=== PATIENT | female | born 1960 | race Caucasian/White ===

== ENCOUNTER 2018-02-11 16:18 | Inpatient (IN) | payer BC, OTHER ==
[~2018-02-11] VITALS: Ht 152.4 cm; Wt 58.3 kg
[~2018-02-11 16:18] MED LIST: NITR100C4 PO
[2018-02-11 16:23] VITALS: BP 175/84; PULSE 97; RESP 16; TEMP 98.7; O2SAT 97
[2018-02-11] MEDS ORDERED: LISI10TA3 PO (16:43)
[2018-02-11] MEDS ORDERED: ESTRODIAL PO (16:43)
--- NOTE | 2018-02-11 16:45 | MB ---
cc: Mario Alberto Reddy MD, PhD Mario Alberto Reddy MD PhD DATE: 02/11/2018 REASON FOR CONSULTATION: Carotid dissection. HISTORY OF PRESENT ILLNESS: This is a very pleasant 57-year-old female with a history of hypertension as well as Crohn's disease who was healthy until last Saturday when she was doing some strenuous exercises and noted pain in the left side of her neck, which radiated to the left eye, and had left facial numbness. She had an MRI of the brain done last week, which was normal. She saw her military nurse on Saturday who diagnosed a left Elvis syndrome and today she was at [facility] receiving imaging of the carotid artery. She had an MRA of the brain that was normal. She had an MRA of the carotids consistent with a dissection involving the distal cervical internal carotid artery on the left. This was confirmed by CT angiography which revealed a dissection of the cervical left internal carotid artery with approximately 60% stenosis on the CTA. She also had a CT of the chest and there is no evidence of any [place] tumor. There was no evidence for any dissecting aneurysm on the CT chest with contrast. She denies any other neurological complaints. She has had no symptoms suggesting TIA, i.e., no speech changes, no focal weakness, numbness, etc. PAST MEDICAL HISTORY: She has a history of Crohn's disease as well as hypertension, hysterectomy. MEDICATIONS AT HOME: 1. Pyridium, 2. Macrobid 3. Pentasa 4. Adderall, 5. Excedrin 6. Lisinopril. 7. Vitamin E 8. Estradiol ALLERGIES: SULFA CODEINE NEUROLOGICAL EXAMINATION: VITAL SIGNS: Blood pressure 173/95, pulse is 67, respiratory rate is 20. Higher cortical functions are completely normal including speech. Comprehension is normal. Cranial nerves: She has a left Elvis syndrome. There is ptosis and myosis on the left. Other cranial nerves are completely normal. There is no facial asymmetry. Facial sensation is grossly normal. On motor examination, she demonstrates 5/5 strength of all groups in both upper and lower. There is no drift. Fine motor skills within normal limits. Reflexes are symmetric. Sensory exam intact. IMPRESSION: Left carotid artery dissection. RECOMMENDATIONS: Would recommend obtaining a stat CT brain to rule out infarction or hemorrhage. If this is clear, would recommend starting IV heparin as well as Coumadin and low-dose 81 mg aspirin. Once the Coumadin is therapeutic, i.e., INR 2-3, could discontinue the IV heparin. Would recommend anticoagulation for at least 6 months, at which point we could repeat a CT angiogram and, if it shows healing of the dissection, could then stop the Coumadin in 6 months and continue aspirin alone. Mario Alberto Reddy MD, PhD DEANDRE/SA , 04:23 PM , 04:44 PM
[2018-02-11] MEDS ORDERED: MULT-207 PO (17:09)
[2018-02-11] MEDS ORDERED: GINK120T4 PO (17:09)
[2018-02-11] MEDS ORDERED: MACR100C2 PO (17:09)
[2018-02-11] MEDS ORDERED: VITA100T65 PO (17:09)
[2018-02-11] MEDS ORDERED: EXCETAB31 PO (17:09)
[2018-02-11] MEDS ORDERED: PENT500C2 PO (17:09)
[2018-02-11] MEDS ORDERED: ESTR2TAB PO (17:09)
[2018-02-11] MEDS ORDERED: [UNRECOGNIZED DRUG - CODE] PO (17:12)
[2018-02-11 17:32] LABS: AUTOMATED NEUTROPHIL # 4.8 TH/MM3 (1.8-7.7); BASOPHIL % 0.5 % (0.0-2.0); EOSINOPHIL # 0.1 TH/MM3 (0-0.4); EOSINOPHIL % 1.3 % (0.0-4.0); HEMATOCRIT 36.9 % (35.0-46.0); HEMOGLOBIN 12.5 GM/DL (11.6-15.3); LYMPH % 23.5 % (9.0-44.0); LYMPHOCYTE # 1.7 TH/MM3 (1.0-4.8); MEAN CELL VOLUME 94.4 FL (80.0-100.0); MEAN CORPUSCULAR HGB CONC 33.9 % (32.0-36.0); MEAN PLATELET VOLUME 8.5 FL (7.0-11.0); MONO % 7.2 % (0.0-8.0); MONOCYTE # 0.5 TH/MM3 (0-0.9); NEUT % 67.5 % (16.0-70.0); PLATELET COUNT 276 TH/MM3 (150-450); RED BLOOD COUNT 3.91 MIL/MM3 (4.00-5.30); RED CELL DISTRIBUTION WIDTH 12.7 % (11.6-17.2)
[2018-02-11 17:38] LABS: INTERNATIONAL NORMALIZED RATIO 0.9 RATIO; PROTHROMBIN TIME - PATIENT 9.4 SEC (9.8-11.6)
[2018-02-11 17:49] LABS: ALBUMIN 4.1 GM/DL (3.4-5.0); AST (GOT) 14 U/L (15-37); BLOOD UREA NITROGEN 10 MG/DL (7-18); CALCIUM 8.9 MG/DL (8.5-10.1); CHLORIDE 104 MEQ/L (98-107); CREATININE 0.71 MG/DL (0.50-1.00); GLOMERULAR FILTRATION RATE 85 ML/MIN (>89); GLUCOSE,RANDOM 98 MG/DL (74-106); SODIUM (NA) 139 MEQ/L (136-145)
--- NOTE | 2018-02-11 17:57 | RADRPT ---
EXAM DATE/TIME: 02/11/2018 17:37 [facility] COMPARISON: No previous studies available for comparison. INDICATIONS : Left sided head and neck pain, Altered mental status RADIATION DOSE: 34.66 CTDIvol (mGy) MEDICAL HISTORY : Hypertension. Crohns disease. SURGICAL HISTORY : Hysterectomy. ENCOUNTER: Initial ACUITY: 1 day PAIN SCALE: 8/10 LOCATION: cranial TECHNIQUE: Multiple contiguous axial images were obtained of the head. Using automated exposure control and adj ustment of the mA and/or kV according to patient size, radiation dose was kept as low as reasonably a chievable to obtain optimal diagnostic quality images. DICOM format image data is available electro nically for review and comparison. FINDINGS: CEREBRUM: The ventricles are normal for age. No evidence of midline shift, mass lesion, hemorrhage or acute in farction. No extra-axial fluid collections are seen. POSTERIOR FOSSA: The cerebellum and brainstem are intact. The 4th ventricle is midline. The cerebellopontine angle i s unremarkable. EXTRACRANIAL: The visualized portion of the orbits is intact. SKULL: The calvaria is intact. No evidence of skull fracture. CONCLUSION: Normal examination. Bobby Thomas MD on February 11, 2018 at 17:51 Board Certified Radiologist. This report was verified electronically.
[2018-02-11 17:59] LABS: ALKALINE PHOSPHATASE 72 U/L (45-117); ALT (GPT) 19 U/L (10-53); TOTAL BILIRUBIN ADULT 0.3 MG/DL (0.2-1.0); TOTAL PROTEIN 7.6 GM/DL (6.4-8.2)
--- NOTE | 2018-02-11 18:08 | PD ---
HPI Chief Complaint: Abnormal Results Time Seen by Provider: 16:58 Travel History International Travel<30 days: No Contact w/Intl Traveler<30days: No Traveled to known affect area: No History of Present Illness HPI 57-year-old female came to the emergency room sent by Dr. Reddy the neurologist for a diagnosis of carotid dissection. Patient apparently had some neck pain and facial numbness 1 week ago and had gone to see her primary care. There was a CTA of the neck done at that time which was normal. However she went to see an master control operator on Saturday and was diagnosed with Elvis syndrome. There was another CTA of the neck and MRA ordered which was done today and shows carotid dissection. She was referred to Dr. Reddy who has sent her here to be admitted and started on heparin and follow-up with vascular surgeon. Dr. Reddy had called earlier to let us know that he had spoken with Dr. Robison and Keily regarding this patient. The plan was to do a plain head CT and if that was negative for any acute stroke or hemorrhage and patient could be started on the heparin, be admitted and consulted. Vital signs are stable otherwise. Patient is not on any other blood thinners. [facility] Past Medical History Narrative Medical List of her past medical, surgical, social and family history is reviewed from the nursing note. Gastrointestinal Disorders: Yes (chrons) Hypertension: Yes Tetanus Vaccination: < 5 Years ?: Not Past Surgical History Hysterectomy: Yes Social History Alcohol Use: No Tobacco Use: No Allergies-Medications (Allergen,Severity, Reaction): Coded Allergies: codeine (Unverified Allergy, Severe, 02/11/18) ITCHING hydromorphone (Verified Allergy, Intermediate, Chest Pain, 02/12/18) Latex, Natural Rubber (Verified Allergy, Mild, sensitive, 02/11/18) Sulfa (Sulfonamide Antibiotics) (Verified Adverse Reaction, Mild, sensitive, 02/11/18) Uncoded Allergies: CODEINE-ITCHING (Allergy, Unknown, 06/15/03) Comments List of her allergies reviewed from the nursing note. Reported Meds & Prescriptions Reported Meds & Active Scripts Active Reported Adderall (Amphetamine-Dextroamphetamine) 30 Mg Tab 1 Tab PO DAILY Nitrofurantoin Monohydrate Macrocrystals (Nitrofurantoin Monoh/Nitrofur Macro) 100 Mg Cap 1 Tab PO BID 10 Days E1000 (Vitamin E) 1,000 Unit Cap 1,000 Unit PO DAILY One Daily (Multiple Vitamin) 1 Tab 1 Tab PO DAILY Ginkgo Biloba 120 Mg Tablet 120 Mg PO DAILY Excedrin Migraine Caplet (Aspirin/Acetaminophen/Caffeine) 250 Mg-250 Mg-65 Mg Tablet 1-2 Tab PO DAILY PRN Macrobid (Nitrofurantoin Monoh/Nitrofur Macro) 100 Mg Cap 100 Mg PO BID Pentasa (Mesalamine) 500 Mg Caper 1,000 Mg PO HS Estradiol 2 Mg Tab 2 Mg PO DAILY Lisinopril 10 Mg Tab 10 Mg PO DAILY Narrative Medication List of her home medications reviewed from the nursing note. Review of Systems Except as stated in HPI: all other systems reviewed are Neg Neurologic: Positive: Paresthesia Physical Exam Narrative GENERAL: Awake, alert, anxious, no obvious distress SKIN: Focused skin assessment warm/dry. HEAD: Atraumatic. Normocephalic. EYES: Pupils equal and round. No scleral icterus. No injection or drainage. Left sided Elvis syndrome ENT: No nasal bleeding or discharge. Mucous membranes pink and moist. NECK: Trachea midline. No JVD. CARDIOVASCULAR: Regular rate and rhythm. No murmur appreciated. RESPIRATORY: No accessory muscle use. Clear to auscultation. Breath sounds equal bilaterally. GASTROINTESTINAL: Abdomen soft, non-tender, nondistended. Hepatic and splenic margins not palpable. MUSCULOSKELETAL: No obvious deformities. No clubbing. No cyanosis. No edema. NEUROLOGICAL: Awake and alert. No obvious cranial nerve deficits. Motor grossly within normal limits. Normal speech. PSYCHIATRIC: Appropriate mood and affect; insight and judgment normal. Data Data Last Documented VS Vital Signs Date Time Temp Pulse Resp B/P (MAP) Pulse Ox O2 Delivery O2 Flow Rate FiO2 02/11/18 17:27 99 02/11/18 16:23 98.7 97 16 175/84 (114) Orders Orders Complete Blood Count With Diff (02/11/18 16:42) Comprehensive Metabolic Panel (02/11/18 16:42) Act Partial Throm Time (Ptt) (02/11/18 16:42) Prothrombin Time / Inr (Pt) (02/11/18 16:42) Iv Access Insert/Monitor (02/11/18 16:42) Ct Brain W/O Iv Contrast(Rout) (02/11/18 ) Heparin Inj (Heparin Inj) (02/11/18 18:15) Heparin Inj (Heparin Inj) (02/12/18 00:15) Heparin Inj (Heparin Inj) (02/12/18 00:15) Heparin-D5w 25,000 U/250 Ml (Heparin-D5w (02/11/18 18:30) Cbc No Diff, Includes Plts (02/14/18 06:00) Act Partial Throm Time (Ptt) (02/12/18 01:03) Acetamin-Hydrocod 325-5 Mg (Canute 5-325 (02/11/18 18:15) Diet Heart Healthy (02/11/18 Dinner) Admit Order (Ed Use Only) (02/11/18 18:36) Labs Laboratory Tests Test 02/11/18 17:10 White Blood Count 7.0 TH/MM3 Red Blood Count 3.91 MIL/MM3 Hemoglobin 12.5 GM/DL Hematocrit 36.9 % Mean Corpuscular Volume 94.4 FL Mean Corpuscular Hemoglobin 32.0 PG Mean Corpuscular Hemoglobin Concent 33.9 % Red Cell Distribution Width 12.7 % Platelet Count 276 TH/MM3 Mean Platelet Volume 8.5 FL Neutrophils (%) (Auto) 67.5 % Lymphocytes (%) (Auto) 23.5 % Monocytes (%) (Auto) 7.2 % Eosinophils (%) (Auto) 1.3 % Basophils (%) (Auto) 0.5 % Neutrophils # (Auto) 4.8 TH/MM3 Lymphocytes # (Auto) 1.7 TH/MM3 Monocytes # (Auto) 0.5 TH/MM3 Eosinophils # (Auto) 0.1 TH/MM3 Basophils # (Auto) 0.0 TH/MM3 CBC Comment DIFF FINAL Differential Comment Prothrombin Time 9.4 SEC Prothromb Time International Ratio 0.9 RATIO Activated Partial Thromboplast Time 25.9 SEC Blood Urea Nitrogen 10 MG/DL Creatinine 0.71 MG/DL Random Glucose 98 MG/DL Total Protein 7.6 GM/DL Albumin 4.1 GM/DL Calcium Level 8.9 MG/DL Alkaline Phosphatase 72 U/L Aspartate Amino Transf (AST/SGOT) 14 U/L Alanine Aminotransferase (ALT/SGPT) 19 U/L Total Bilirubin 0.3 MG/DL Sodium Level 139 MEQ/L Potassium Level 3.9 MEQ/L Chloride Level 104 MEQ/L Carbon Dioxide Level 28.0 MEQ/L Anion Gap 7 MEQ/L Estimat Glomerular Filtration Rate 85 ML/MIN MDM Medical Decision Making Medical Screen Exam Complete: Yes Emergency Medical Condition: Yes Medical Record Reviewed: Yes Differential Diagnosis Carotid dissection Narrative Course 6:[address] of the head is been read as normal. Blood test results are within acceptable limits. I have ordered heparin bolus and drip. I put a call out for Dr. Reddy and have not heard back from him yet. Awaiting for the hospitalist to call back for admission. Critical Care Narrative Aggregate critical care time was 30 minutes. Time to perform other separately billable procedures was not included in the critical care time. My time did not include minutes spent treating any other patients simultaneously or on activities that did not directly contribute to the patient's treatment. The services I provided to this patient were to treat and/or prevent clinically significant deterioration that could result in: Heparin bolus and drip, carotid dissection I provided critical care services requiring my management, as noted below: Chart data review, documentation time, medication orders and management, vital sign assessments/reviewing monitor data, ordering and reviewing lab tests, ordering and interpreting/reviewing x-rays and diagnostic studies, care of the patient and discussion of the patient with the admitting physicians. Procedures EKG Prior to Arrival: No Diagnosis Primary Impression: Carotid artery dissection Additional Impression: Elvis syndrome Admitting Information Admitting Physician Requests: Aparna Tompkins MD February 11, 2018 18:08
[2018-02-11] MEDS ORDERED: ACETAMINOPHEN/HYDROcodone 325 MG/5 MG TAB PO ONE (18:15)
[2018-02-11] MEDS ORDERED: HEPARIN SODIUM - IV 10,000 UNITS/10 ML VIAL IV ONE (18:15)
[2018-02-11] MEDS: HEPARIN-D5W 25,000 U/250 ML 250 ML IV PRN (18:44)
[2018-02-11] MEDS ORDERED: SENNOSIDES 8.6 MG TAB PO PRN (19:15)
[2018-02-11] MEDS ORDERED: BISACODYL 10 MG SUPP RECTAL PRN (19:15)
[2018-02-11] MEDS ORDERED: MAGNESIUM HYDROXIDE SUSP 30 ML CUP PO PRN (19:15)
[2018-02-11] MEDS ORDERED: LACTULOSE SYRUP 20 GM/30 ML CUP PO PRN (19:15)
[2018-02-11] MEDS ORDERED: NALOXONE HCL 0.4 MG/ML AMP IV PUSH PRN (19:15)
[2018-02-11] MEDS ORDERED: SODIUM CHLORIDE 0.9% FLUSH 10 ML FLUSH IV FLUSH PRN (19:15)
[2018-02-11] MEDS ORDERED: WARFARIN SOD 5 MG TAB PO SCH (20:00)
[2018-02-11 20:08] VITALS: BP 156/76; PULSE 72; RESP 14; O2SAT 97
[2018-02-11] MEDS ORDERED: WARFARIN SOD 5 MG TAB PO ONE (20:15)
--- NOTE | 2018-02-11 20:23 | HHI.HP ---
[facility] Mario Alberto Plata M.D. Admission Diagnosis Carotid dissection Diagnoses: Chief Complaint: Left face numbness, left neck pain Travel History International Travel<30 Days: No Contact w/Intl Traveler <30 Da: No Traveled to Known Affected Are: No History of Present Illness 57-year-old female with past medical history of hypertension, ulcerative colitis , attention deficit on dextroamphetamine who presents with a one-week history of dull left neck pain radiating to left face, with several day history of left face numbness. She went to urgent care this morning with MRA showing left carotid dissection. She reports continued left-sided face numbness which is slightly improved. She denies any visual changes. She reports some nausea yesterday without vomiting which has resolved. She reports some subjective night sweats last night, however denies any fevers. Other than left facial numbness, patient denies any focal neurologic signs or symptoms. Incidentally, patient also reports some hematuria beginning about a week ago, for which a urinalysis was done 5 days ago and patient was started on Macrobid for treatment of UTI. She reports that symptoms have resolved but she is to continue treatment. Review of Systems Except as stated in HPI: all other systems reviewed are Neg Past Family Social History Past Medical History Attention deficit disorder. Patient takes Adderall for this Hypertension Crohn's disease Chronic migraines Past Surgical History Hysterectomy Basal cell carcinoma removal Reported Medications Reported Meds & Active Scripts Active Reported E1000 (Vitamin E) 1,000 Unit Cap 1,000 Unit PO DAILY One Daily (Multiple Vitamin) 1 Tab 1 Tab PO DAILY Ginkgo Biloba 120 Mg Tablet 120 Mg PO DAILY Excedrin Migraine Caplet (Aspirin/Acetaminophen/Caffeine) 250 Mg-250 Mg-65 Mg Tablet 1-2 Tab PO DAILY PRN Macrobid (Nitrofurantoin Monoh/Nitrofur Macro) 100 Mg Cap 100 Mg PO BID Pentasa (Mesalamine) 500 Mg Caper 1,000 Mg PO HS Estradiol 2 Mg Tab 2 Mg PO DAILY Lisinopril 10 Mg Tab 10 Mg PO DAILY Patient also reports that she takes Adderall as needed for attention deficit Allergies: Coded Allergies: codeine (Unverified Allergy, Severe, 02/11/18) ITCHING Latex, Natural Rubber (Verified Allergy, Mild, sensitive, 02/11/18) Sulfa (Sulfonamide Antibiotics) (Verified Adverse Reaction, Mild, sensitive, 02/11/18) Uncoded Allergies: CODEINE-ITCHING (Allergy, Unknown, 06/15/03) Family History Mother with hypertension and diabetes. Father with ulcerative colitis. Social History Non-smoker. Occasional drinker. Patient denies any illicit drugs. Physical Exam Vital Signs Vital Signs Date Time Temp Pulse Resp B/P (MAP) Pulse Ox O2 Delivery O2 Flow Rate FiO2 02/11/18 20:08 72 14 156/76 (102) 97 Nasal Cannula 2.00 02/11/18 17:27 99 02/11/18 16:23 98.7 97 16 175/84 (114) 97 Physical Exam GENERAL: This is a well-nourished, well-developed patient, in no apparent distress. Alert and oriented 3 SKIN: No rashes, ecchymoses or lesions. Cool and dry. HEAD: Atraumatic. Normocephalic. No temporal or scalp tenderness. EYES: Pupils equal round and reactive. Extraocular motions intact. No scleral icterus. No injection or drainage. ENT: Nose without bleeding, purulent drainage or septal hematoma. Throat without erythema, tonsillar hypertrophy or exudate. Uvula midline. Airway patent. NECK: Trachea midline. No JVD. CARDIOVASCULAR: Regular rate and rhythm without murmurs, gallops, or rubs. No carotid bruit. RESPIRATORY: Clear to auscultation. Breath sounds equal bilaterally. No wheezes , rales, or rhonchi. GASTROINTESTINAL: Abdomen soft, non-tender, nondistended. No hepato-splenomegaly , or palpable masses. No guarding. MUSCULOSKELETAL: Extremities without clubbing, cyanosis, or edema. No joint tenderness, effusion, or edema noted. No calf tenderness. Negative Homans sign bilaterally. NEUROLOGICAL: Awake and alert. Cranial nerves II through XII intact. Pupils equal round and reactive to light. Patient reports subjective left face numbness. No facial droop. Motor and sensory grossly within normal limits. Five out of 5 muscle strength in all muscle groups. Normal speech. Laboratory Laboratory Tests Test 02/11/18 17:10 White Blood Count 7.0 Red Blood Count 3.91 Hemoglobin 12.5 Hematocrit 36.9 Mean Corpuscular Volume 94.4 Mean Corpuscular Hemoglobin 32.0 Mean Corpuscular Hemoglobin Concent 33.9 Red Cell Distribution Width 12.7 Platelet Count 276 Mean Platelet Volume 8.5 Neutrophils (%) (Auto) 67.5 Lymphocytes (%) (Auto) 23.5 Monocytes (%) (Auto) 7.2 Eosinophils (%) (Auto) 1.3 Basophils (%) (Auto) 0.5 Neutrophils # (Auto) 4.8 Lymphocytes # (Auto) 1.7 Monocytes # (Auto) 0.5 Eosinophils # (Auto) 0.1 Basophils # (Auto) 0.0 CBC Comment DIFF FINAL Differential Comment Prothrombin Time 9.4 Prothromb Time International Ratio 0.9 Activated Partial Thromboplast Time 25.9 Blood Urea Nitrogen 10 Creatinine 0.71 Random Glucose 98 Total Protein 7.6 Albumin 4.1 Calcium Level 8.9 Alkaline Phosphatase 72 Aspartate Amino Transf (AST/SGOT) 14 Alanine Aminotransferase (ALT/SGPT) 19 Total Bilirubin 0.3 Sodium Level 139 Potassium Level 3.9 Chloride Level 104 Carbon Dioxide Level 28.0 Anion Gap 7 Estimat Glomerular Filtration Rate 85 Result Diagram: 02/11/18 1710 02/11/18 1710 Imaging Last Impressions Head CT 02/11/18 0000 Signed Impressions: Service Date/Time: Sunday, February 11, 2018 17:37 - CONCLUSION: Normal examination. MD Devaughn Marsh VTE Risk Assessment Devaughn VTE Risk Assessment: No/Low Risk (score <= 1) Caprini Risk Assessment Model Point Value = 1 Point Value = 2 Point Value = 3 Point Value = 5 Age 41-60 Minor surgery BMI > 25 kg/m2 Swollen legs Varicose veins or History of unexplained or recurrent spontaneous Oral contraceptives or hormone replacement Sepsis (< 1 month) Serious lung disease, including pneumonia (< 1 month) Abnormal pulmonary function Acute myocardial infarction Congestive heart failure (< 1 month) History of inflammatory bowel disease Medical patient at bed rest Age 61-74 Arthroscopic surgery Major open surgery (> 45 min) Laparoscopic surgery (> 45 min) Malignancy Confined to bed (> 72 hours) Immobilizing plaster cast Central venous access Age >= 75 History of VTE Family history of VTE Factor V Leiden Prothrombin [id number] Lupus anticoagulant Anticardiolipin antibodies Elevated serum homocysteine Heparin-induced thrombocytopenia Other congenital or acquired thrombophilia Stroke (< 1 month) Elective arthroplasty Hip, pelvis, or leg fracture Acute spinal cord injury (< 1 month) Prophylaxis Regimen Total Risk Factor Score Risk Level Prophylaxis Regimen 0-1 Low Early ambulation 2 Moderate Order ONE of the following: *Sequential Compression Device (SCD) *Heparin 5000 units SQ BID 3-4 Higher Order ONE of the following medications: *Heparin 5000 units SQ TID *Enoxaparin/Lovenox 40 mg SQ daily (WT < 150 kg, CrCl > 30 mL/min) *Enoxaparin/Lovenox 30 mg SQ daily (WT < 150 kg, CrCl > 10-29 mL/min) *Enoxaparin/Lovenox 30 mg SQ BID (WT < 150 kg, CrCl > 30 mL/min) AND/OR *Sequential Compression Device (SCD) 5 or more Highest Order ONE of the following medications: *Heparin 5000 units SQ TID (Preferred with Epidurals) *Enoxaparin/Lovenox 40 mg SQ daily (WT < 150 kg, CrCl > 30 mL/min) *Enoxaparin/Lovenox 30 mg SQ daily (WT < 150 kg, CrCl > 10-29 mL/min) *Enoxaparin/Lovenox 30 mg SQ BID (WT < 150 kg, CrCl > 30 mL/min) AND *Sequential Compression Device (SCD) Assessment and Plan Assessment and Plan //Acute left carotid dissection. Seen on outpatient imaging. Neurology assistance appreciated. Continue on heparin drip to bridge to warfarin. Vascular surgery consult pending. Recommend staying off of amphetamines for attention deficit. Hold off on estrogen replacement due to increased risk of stroke. //Hypertension. Blood pressure acceptable. Continue home medications. Continue to monitor. //Ulcerative colitis. Chronic. Continue mesalamine. //Attention deficit disorder. Recommend staying off Adderall as this has been associated with increased risk of arterial dissection.. Discussed Condition With Patient, Dr Hernandez. Physician Certification 2 Midnight Certification Type: Admission for Inpatient Services Order for Inpatient Services The services are ordered in accordance with Medicare regulations or non- Medicare payer requirements, as applicable. In the case of services not specified as inpatient-only, they are appropriately provided as inpatient services in accordance with the 2-midnight benchmark. Estimated LOS (days): 2 days is the estimated time the patient will need to remain in the hospital, assuming treatment plan goals are met and no additional complications. Post-Hospital Plan: Not yet determined Josesito Gutierrez MD February 11, 2018 20:23
[2018-02-11] MEDS: SODIUM CHLORIDE 0.9% FLUSH 10 ML FLUSH IV FLUSH SCH (21:00)
[2018-02-11] MEDS ORDERED: MESALAMINE 1000 MG PO SCH (21:00)
[2018-02-11] MEDS ORDERED: ADDE30TA PO (21:04)
[2018-02-11 21:30] VITALS: BP 142/78; PULSE 68; RESP 15; TEMP 97.8; O2SAT 96
[2018-02-11] MEDS: ASPIRIN 81 MG CHEW TAB PO SCH (22:13)
[2018-02-12] VITALS (7 sets, daily range): BP systolic 136–166; BP diastolic 70–78; PULSE 59–71; RESP 12–18; TEMP 97.1–98.5; O2SAT 93–100
[2018-02-12] MEDS ORDERED: HEPARIN SODIUM - IV 10,000 UNITS/10 ML VIAL IV PRN ×2 (00:15)
[2018-02-12 01:37] LABS: PROTHROMBIN TIME - PATIENT 9.9 SEC (9.8-11.6)
[2018-02-12] MEDS: ACETAMINOPHEN 325 MG TAB PO PRN (06:41)
[2018-02-12 07:33] LABS: PROTHROMBIN TIME - PATIENT 9.9 SEC (9.8-11.6)
[2018-02-12 07:37] LABS: AUTOMATED NEUTROPHIL # 2.6 TH/MM3 (1.8-7.7); BASOPHIL % 0.9 % (0.0-2.0); EOSINOPHIL # 0.2 TH/MM3 (0-0.4); HEMOGLOBIN 11.7 GM/DL (11.6-15.3); LYMPH % 39.7 % (9.0-44.0); LYMPHOCYTE # 2.2 TH/MM3 (1.0-4.8); MEAN CELL VOLUME 93.7 FL (80.0-100.0); MEAN CORPUSCULAR HEMOGLOBIN 31.2 PG (27.0-34.0); MEAN CORPUSCULAR HGB CONC 33.3 % (32.0-36.0); MEAN PLATELET VOLUME 8.5 FL (7.0-11.0); MONO % 9.6 % (0.0-8.0); MONOCYTE # 0.5 TH/MM3 (0-0.9); NEUT % 46.8 % (16.0-70.0); PLATELET COUNT 258 TH/MM3 (150-450); RED BLOOD COUNT 3.74 MIL/MM3 (4.00-5.30); RED CELL DISTRIBUTION WIDTH 12.7 % (11.6-17.2); WHITE BLOOD COUNT 5.5 TH/MM3 (4.0-11.0)
[2018-02-12 07:50] LABS: BICARBONATE 29.3 MEQ/L (21.0-32.0); CALCIUM 8.5 MG/DL (8.5-10.1); CREATININE 0.59 MG/DL (0.50-1.00)
[2018-02-12] MEDS: SODIUM CHLORIDE 0.9% FLUSH 10 ML FLUSH IV FLUSH SCH ×2 (09:00→20:48)
[2018-02-12] MEDS ORDERED: ACETAMINOPHEN/HYDROcodone 325 MG/5 MG TAB PO PRN (09:45)
[2018-02-12] MEDS: ONDANSETRON HCL 4 MG/2 ML VIAL IV PUSH PRN (10:22)
[2018-02-12] MEDS: NITROFURANTOIN MONOHYD MACROCR 100 MG CAP PO SCH ×2 (10:23→17:09)
[2018-02-12] MEDS: ASPIRIN 81 MG CHEW TAB PO SCH (10:23)
[2018-02-12] MEDS: LISINOPRIL 10 MG TAB PO SCH (10:23)
--- NOTE | 2018-02-12 10:26 | PD.VS.CON ---
History of Present Illness Chief Complaint: Left carotid artery dissection Consult Requested by: Dr. Reddy History of Present Illness Mrs. Anand is a 57/F with a PMH of Attention Deficit Disorder, Migraine Headaches, Hypertension and Ulcerative Colitis. Pt presented to the hospital c/o Left sided facial numbness for a duration of a week after lifting weights. 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 (Kimmy Walters) Home Medications Reported Medications Amphetamine-Dextroamphetamine (Adderall) 30 Mg Tab, 1 TAB PO DAILY 02/11/18 Nitrofurantoin Monohydrate Macrocrystals (Nitrofurantoin Monohydrate Macrocrystals) 100 Mg Cap, 1 TAB PO BID for 10 Days, #20 02/11/18 Vitamin E (E1000) 1,000 Unit Cap, 1000 UNIT PO DAILY for Nutritional Supplement 02/11/18 Multiple Vitamin (One Daily) 1 Tab, 1 TAB PO DAILY for Nutritional Supplement, TAB 0 Refills 02/11/18 Ginkgo Biloba (Ginkgo Biloba) 120 Mg Tablet, 120 MG PO DAILY 02/11/18 Aspirin/Acetaminophen/Caffeine (Excedrin Migraine Caplet) 250 Mg-250 Mg-65 Mg Tablet, 1-2 TAB PO DAILY Y for HEADACHE 02/11/18 Nitrofurantoin Monohydrate Macrocrystals (Macrobid) 100 Mg Cap, 100 MG PO BID for Infection, CAP 0 Refills 02/11/18 Mesalamine ER (Pentasa) 500 Mg Caper, 1000 MG PO HS for Ulcerative Colitis, CAP 0 Refills 02/11/18 Estradiol (Estradiol) 2 Mg Tab, 2 MG PO DAILY for Estrogen Supplements, #30 TAB 0 Refills 02/11/18 Lisinopril (Lisinopril) 10 Mg Tab, 10 MG PO DAILY, #30 TAB 0 Refills 02/11/18 Discontinued Reported Medications Vitamin E (Vitamin E) 100 Unit Tab, 100 UNITS PO DAILY for Nutritional Supplement, TAB 0 Refills 02/11/18 [estrodial] No Conflict Check, 2 MG PO DAILY 02/11/18 Coded Allergies: codeine (Unverified Allergy, Severe, 02/11/18) ITCHING Latex, Natural Rubber (Verified Allergy, Mild, sensitive, 02/11/18) Sulfa (Sulfonamide Antibiotics) (Verified Adverse Reaction, Mild, sensitive, 02/11/18) Uncoded Allergies: CODEINE-ITCHING (Allergy, Unknown, 06/15/03) Review of Systems Constitutional: DENIES: Fever, Chills Eyes: DENIES: Blurred vision, Diplopia, Vision loss Cardiovascular: DENIES: Chest pain Neurologic: COMPLAINS OF: Headache, Paresthesias (C/O Left sided facial numbness ), DENIES: Abnormal gait, Localized weakness, Speech Problems, Poor Balance (Kimmy Walters) Physical Exam Vitals/I&O Date Time Temp Pulse Resp B/P (MAP) Pulse Ox O2 Delivery O2 Flow Rate FiO2 02/12/18 03:59 Nasal Cannula 2.00 02/12/18 00:00 98.2 67 14 136/77 (96) 97 02/12/18 00:00 Nasal Cannula 2.00 02/11/18 21:30 Nasal Cannula 2.00 02/11/18 21:30 97.8 68 15 142/78 (99) 96 02/11/18 20:08 72 14 156/76 (102) 97 Nasal Cannula 2.00 02/11/18 17:27 99 02/11/18 16:23 98.7 97 16 175/84 (114) 97 02/12/18 02/12/18 02/12/18 07:00 15:00 23:00 Intake Total 240 ml Balance 240 ml Neuro: GCS 15 A&OX3 CN 2-12 intact Speech clear HEENT: ELOISA Neck: No JVD distention No carotid bruits noted Heart: RRR +S1,S2 Lungs: BS CTA Vascular: Palpable R/L Radial pulses No carotid bruits present Extremities: UE 02/08 LE 02/08 (Kimmy Walters) Laboratory Tests Test 02/11/18 17:10 02/12/18 01:09 02/12/18 06:33 White Blood Count 7.0 5.5 Red Blood Count 3.91 3.74 Hemoglobin 12.5 11.7 Hematocrit 36.9 35.0 Mean Corpuscular Volume 94.4 93.7 Mean Corpuscular Hemoglobin 32.0 31.2 Mean Corpuscular Hemoglobin Concent 33.9 33.3 Red Cell Distribution Width 12.7 12.7 Platelet Count 276 258 Mean Platelet Volume 8.5 8.5 Neutrophils (%) (Auto) 67.5 46.8 Lymphocytes (%) (Auto) 23.5 39.7 Monocytes (%) (Auto) 7.2 9.6 Eosinophils (%) (Auto) 1.3 3.0 Basophils (%) (Auto) 0.5 0.9 Neutrophils # (Auto) 4.8 2.6 Lymphocytes # (Auto) 1.7 2.2 Monocytes # (Auto) 0.5 0.5 Eosinophils # (Auto) 0.1 0.2 Basophils # (Auto) 0.0 0.0 CBC Comment DIFF FINAL DIFF FINAL Differential Comment Prothrombin Time 9.4 9.9 9.9 Prothromb Time International Ratio 0.9 1.0 1.0 Activated Partial Thromboplast Time 25.9 42.1 35.0 Blood Urea Nitrogen 10 9 Creatinine 0.71 0.59 Random Glucose 98 91 Total Protein 7.6 Albumin 4.1 Calcium Level 8.9 8.5 Alkaline Phosphatase 72 Aspartate Amino Transf (AST/SGOT) 14 Alanine Aminotransferase (ALT/SGPT) 19 Total Bilirubin 0.3 Sodium Level 139 141 Potassium Level 3.9 3.7 Chloride Level 104 105 Carbon Dioxide Level 28.0 29.3 Anion Gap 7 7 Estimat Glomerular Filtration Rate 85 106 Last [address] 02/11/18 0000 Signed Impressions: Service Date/Time: Sunday, February 11, 2018 17:37 - CONCLUSION: Normal examination. Bobby Thomas MD (Kimmy Walters REGIONAL AGRONOMIST) Assessment and Plan Assessment: (1) Carotid artery dissection Status: Acute Plan 57/F with a newly dx LEFT sided carotid artery dissection Pt c/o Left sided facial numbness (no facial droop)- improving Plan Discussed and reviewed imaging studies w/ pt Discussed and reviewed Carotid Artery Dissection care and management w/ pt Recommend continued anticoagulation for 6M Recommend Systolic B/P to remain < 140 Recommend surveillance U/S in 1M Will arrange out pt f/u Kimmy Walters NP [facility] [phone] Discharge Planning Will Arrange out pt f/u and a surveillance U/S in 1M Pt clear for d/c from a vascular surgery standpoint (Kimmy Walters) Plan Pt with L ICA dissection without complicating features. Other than neck pain and a migraine (which feels like her usual migraine), she is grossly neuro intact. Does have L<R pupil size. CTA reviewed and note reviewed above. I think ASA (81) and coumadin x 6m is appropriate and agree with neurology. Will f/u in my clinic in 1m with carotid duplex (already scheduled) and then repeat CTA neck in 6m. Ok to normalize activity now (OOB ad coleman, diet, etc) continue neuro checks Jeffry Robison MD FACS [employer] missile and missile checkout technician [facility] - Heart and Vascular Surgery at [facility] [phone] (Jeffry Robison MD) Kimmy Walters February 12, 2018 10:26 Jeffry Robison MD February 12, 2018 11:14
--- NOTE | 2018-02-12 12:17 | HHI.DCPOC ---
Discharge Care Plan Diagnosis: (1) Carotid artery dissection Goals to Promote Your Health * To prevent worsening of your condition and complications * To maintain your health at the optimal level Directions to Meet Your Goals Take your medications as prescribed Follow your dietary instruction Follow activity as directed Keep your appointments as scheduled Take your immunizations and boosters as scheduled If your symptoms worsen call your PCP, if no PCP go to Urgent Care Center or Emergency Room Smoking is Dangerous to Your Health. Avoid second hand smoke Call the 24-hour hour crisis hotline for domestic abuse at Juve Duke MD February 12, 2018 12:17
--- NOTE | 2018-02-12 13:02 | HHI.PR ---
Subjective Remarks Nursing denies any deterioration since last night. Patient reports having some intermittent nausea, thinks her nausea is coming from her headache was still a problem. Objective Vital Signs Date Time Temp Pulse Resp B/P (MAP) Pulse Ox O2 Delivery O2 Flow Rate FiO2 02/12/18 08:04 97.1 63 18 158/76 (103) 94 02/12/18 03:59 Nasal Cannula 2.00 02/12/18 00:00 98.2 67 14 136/77 (96) 97 02/12/18 00:00 Nasal Cannula 2.00 02/11/18 21:30 Nasal Cannula 2.00 02/11/18 21:30 97.8 68 15 142/78 (99) 96 02/11/18 20:08 72 14 156/76 (102) 97 Nasal Cannula 2.00 02/11/18 17:27 99 02/11/18 16:23 98.7 97 16 175/84 (114) 97 I/O 02/11/18 02/11/18 02/11/18 02/12/18 02/12/18 02/12/18 07:00 15:00 23:00 07:00 15:00 23:00 Intake Total 240 ml Balance 240 ml Intake Oral 240 ml # Voids 2 Result Diagram: 02/12/1863202/12/18632 Objective Remarks No facial droop, no slurred speech, awake, alert, no acute distress, heart sounds are regular rate rhythm, no murmurs A/P Assessment and Plan //Acute left carotid dissection. Seen on outpatient imaging. Neurology assistance appreciated-further recommendations continue aspirin and continue on heparin drip to bridge to warfarin. Vascular surgery recommends medical management as well. LIN - fiorect per d/w Neuro. zofran prn nausea. //Hypertension. Blood pressure acceptable. Continue home medications. Continue to monitor. //Ulcerative colitis. Chronic. Continue mesalamine. //Attention deficit disorder. Recommend staying off Adderall and estrogen as this has been associated with increased risk of arterial dissection.. In total, the time spent with the patient was over 35 minute of which more than 50% of patient care was spent discussing his or her care and counseling the patient and corresponding caregivers. Addendum: Nursing paged around 6:55 PM stating that the patient developed acute onset chest tightness dizziness and tingling in her fingertips bilaterally as well as a rash after receiving a first time and one-time dose of IV Dilaudid. Denies any worsening of her headache. Nursing had administered Benadryl to the patient. Blood pressure rey past 170 systolic. Patient was alert and oriented and awake, there was no worsening droop or slurred speech per nursing. Ordered IV labetalol as needed blood pressures elevated greater than 140 systolic and ordering p.o. scheduled Lopressor. Ordering to transfer patient to see ICU or IMC level care stat with telemetry. Will defer to neurology for continuation of heparin drip - neurology notified of events per nursing. Juve Duke MD February 12, 2018 13:02
[2018-02-12] MEDS ORDERED: ACETAMIN 325 MG/BUTALBITAL 50 MG/CAFFEINE 40 MG TAB PO ONE (14:00)
--- NOTE | 2018-02-12 14:43 | HHI.PR ---
Review/Management Diagnosis left carotid dissection severe pain--from carotydinia and secondary migraine related to the dissection No evidence for stroke or TIA Plan recommend continued in patient monitoring for TIA or cerebral ischemia given the severity of the dissection and continue heparin / coumadin until INR >2 Trial of iv dilaudid for severe pain related to the dissection. Diagnosis/Plan: Subjective Subjective Comments Patient c/o severe pain left neck with radiation to left forehead --07/16 with severe nausea. It did not significantly reduce with fioricet or norco. She denies speech changes or focal neurologic sx. Active Medications Current Medications Medications (Trade) Dose Ordered Sig/Brenda Route Start Time Stop Time Status Last Admin (Heparin Inj) 5,000 units UNSCH PRN IV 02/12/18 00:15 (Heparin Inj) 2,500 units UNSCH PRN IV 02/12/18 00:15 Heparin Sodium/ Dextrose 250 ml @ 7 mls/hr TITRATE PRN IV 02/11/18 18:30 02/11/18 18:44 (Prinivil) 10 mg DAILY PO 02/12/18 09:00 02/12/18 10:23 (NS Flush) 2 ml UNSCH PRN IV FLUSH 02/11/18 19:15 (NS Flush) 2 ml BID IV FLUSH 02/11/18 21:00 (Tylenol) 650 mg Q4H PRN PO 02/11/18 19:15 02/12/18 06:41 (Narcan Inj) 0.4 mg UNSCH PRN IV PUSH 02/11/18 19:15 (Milk Of Magnesia Liq) 30 ml Q12H PRN PO 02/11/18 19:15 (Senokot) 17.2 mg Q12H PRN PO 02/11/18 19:15 (Dulcolax Supp) 10 mg DAILY PRN RECTAL 02/11/18 19:15 (Lactulose Liq) 30 ml DAILY PRN PO 02/11/18 19:15 (Macrobid) 100 mg BIDPC PO 02/12/18 09:00 02/12/18 10:23 (Aspirin Chew) 81 mg DAILY PO 02/11/18 21:00 02/12/18 10:23 (Zofran Inj) 4 mg Q6H PRN IV PUSH 02/12/18 09:45 02/12/18 10:22 Patient Own Medication PTOWN: PENTASA (MESALAM... HS PO 02/12/18 21:00 (Coumadin) 7.5 mg DAILY@16 PO 02/12/18 16:00 Allergies Allergies Coded Allergies codeine (Unverified Allergy, Severe, 02/11/18) Latex, Natural Rubber (Verified Allergy, Mild, sensitive, 02/11/18) Sulfa (Sulfonamide Antibiotics) (Verified Adverse Reaction, Mild, sensitive, ) Uncoded Allergies CODEINE-ITCHING ( Allergy, Unknown, 06/15/03) Exam I&O / VS Vital Signs Date Time Temp Pulse Resp B/P (MAP) Pulse Ox O2 Delivery O2 Flow Rate FiO2 02/12/18 12:04 98.1 62 18 137/70 (92) 96 02/12/18 08:04 97.1 63 18 158/76 (103) 94 02/12/18 03:59 Nasal Cannula 2.00 02/12/18 00:00 98.2 67 14 136/77 (96) 97 02/12/18 00:00 Nasal Cannula 2.00 02/11/18 21:30 Nasal Cannula 2.00 02/11/18 21:30 97.8 68 15 142/78 (99) 96 02/11/18 20:08 72 14 156/76 (102) 97 Nasal Cannula 2.00 02/11/18 17:27 99 02/11/18 16:23 98.7 97 16 175/84 (114) 97 Exam Comments alert, appears in distress related to severe headache. Speech is normal CN normal with left Horners MOTOR 5/5 BUE and BLE, no drift, normal fine motor Objective Micro and Labs Laboratory Tests Test 02/11/18 17:10 02/12/18 01:09 02/12/18 06:33 White Blood Count 7.0 5.5 Red Blood Count 3.91 3.74 Hemoglobin 12.5 11.7 Hematocrit 36.9 35.0 Mean Corpuscular Volume 94.4 93.7 Mean Corpuscular Hemoglobin 32.0 31.2 Mean Corpuscular Hemoglobin Concent 33.9 33.3 Red Cell Distribution Width 12.7 12.7 Platelet Count 276 258 Mean Platelet Volume 8.5 8.5 Neutrophils (%) (Auto) 67.5 46.8 Lymphocytes (%) (Auto) 23.5 39.7 Monocytes (%) (Auto) 7.2 9.6 Eosinophils (%) (Auto) 1.3 3.0 Basophils (%) (Auto) 0.5 0.9 Neutrophils # (Auto) 4.8 2.6 Lymphocytes # (Auto) 1.7 2.2 Monocytes # (Auto) 0.5 0.5 Eosinophils # (Auto) 0.1 0.2 Basophils # (Auto) 0.0 0.0 CBC Comment DIFF FINAL DIFF FINAL Differential Comment Prothrombin Time 9.4 9.9 9.9 Prothromb Time International Ratio 0.9 1.0 1.0 Activated Partial Thromboplast Time 25.9 42.1 35.0 Blood Urea Nitrogen 10 9 Creatinine 0.71 0.59 Random Glucose 98 91 Total Protein 7.6 Albumin 4.1 Calcium Level 8.9 8.5 Alkaline Phosphatase 72 Aspartate Amino Transf (AST/SGOT) 14 Alanine Aminotransferase (ALT/SGPT) 19 Total Bilirubin 0.3 Sodium Level 139 141 Potassium Level 3.9 3.7 Chloride Level 104 105 Carbon Dioxide Level 28.0 29.3 Anion Gap 7 7 Estimat Glomerular Filtration Rate 85 106 Mario Alberto Reddy MD PhD February 12, 2018 14:43
[2018-02-12] MEDS ORDERED: HYDROmorphone HCL PF 1 MG/ML VIAL IV PUSH PRN (14:45)
[2018-02-12] MEDS ORDERED: WARFARIN SOD 5 MG TAB PO SCH (16:00)
[2018-02-12] MEDS: WARFARIN SOD 7.5 MG TAB PO SCH (17:10)
[2018-02-12] MEDS ORDERED: HYDROmorphone HCL PF 2 MG/ML VIAL IV PUSH PRN (18:15)
[2018-02-12] MEDS ORDERED: diphenhydrAMINE HCL 50 MG/ML VIAL ONE (18:44)
[2018-02-12] MEDS ORDERED: hydrALAZINE HCL 20 MG/ML VIAL IV PUSH ONE (19:00)
[2018-02-12] MEDS ORDERED: LABETALOL HCL 100 MG/20 ML VIAL IV PUSH PRN (19:00)
[2018-02-12] MEDS: PENTASA 500 MG PO SCH (20:48)
[2018-02-12] MEDS: METOPROLOL TARTRATE 25 MG TAB PO SCH (20:49)
[2018-02-13] VITALS (9 sets, daily range): BP systolic 108–141; BP diastolic 67–84; PULSE 52–76; RESP 10–30; TEMP 97.8–99; O2SAT 95–97
[2018-02-13] MEDS: ACETAMIN 325 MG/BUTALBITAL 50 MG/CAFFEINE 40 MG TAB PO PRN ×3 (00:04→21:40)
[2018-02-13] MEDS: HEPARIN-D5W 25,000 U/250 ML 250 ML IV PRN (00:06)
[2018-02-13] MEDS: METOPROLOL TARTRATE 25 MG TAB PO SCH ×3 (05:47→21:10)
--- NOTE | 2018-02-13 08:32 | HHI.PR ---
Subjective Remarks Patient had apparent allergic reaction to Dilaudid yesterday and was transferred to the ICU. She is reporting chest tightness again this morning. Admits to feeling anxious. Denies shortness of breath. No true pain. Reports bandlike tightness. Headache is much better today Objective Vitals Vital Signs Date Time Temp Pulse Resp B/P (MAP) Pulse Ox O2 Delivery O2 Flow Rate FiO2 02/13/18 06:00 58 02/13/18 04:00 60 02/13/18 04:00 98.2 58 30 114/69 (84) 95 02/13/18 02:00 54 02/13/18 00:00 97.8 55 10 108/67 (81) 95 02/13/18 00:00 52 02/12/18 22:00 71 02/12/18 20:30 59 02/12/18 20:30 Room Air 02/12/18 20:30 98.5 59 12 166/78 (107) 93 02/12/18 18:50 100 2.00 02/12/18 18:50 100 Nasal Cannula 2.00 02/12/18 16:04 98.0 64 18 142/72 (95) 96 02/12/18 12:04 98.1 62 18 137/70 (92) 96 I/O 02/12/18 02/12/18 02/12/18 02/13/18 02/13/18 02/13/18 06:59 14:59 22:59 06:59 14:59 22:59 Intake Total 240 ml 380 ml 490 ml Output Total 550 ml Balance 240 ml 380 ml -60 ml Intake Oral 240 ml 380 ml 240 ml IV Total 250 ml Output Urine Total 550 ml # Voids 2 3 # Bowel Movements 0 0 Result Diagram: 02/12/18 0633 02/12/18 0633 Objective Remarks GENERAL: This is a well-nourished, well-developed patient, in no apparent distress. CARDIOVASCULAR: Regular rate and rhythm without murmurs, gallops, or rubs. RESPIRATORY: Clear to auscultation. Breath sounds equal bilaterally. No wheezes , rales, or rhonchi. GASTROINTESTINAL: Abdomen soft, non-tender, nondistended. Normal active bowel sounds MUSCULOSKELETAL: Extremities without clubbing, cyanosis, or edema. NEURO: Alert & Oriented x4 to person, place, time, situation. Moves all ext x4 A/P Assessment and Plan 57 Y/O female with: Acute left carotid dissection. Seen on outpatient imaging. Neurology assistance appreciated-further recommendations continue aspirin and continue on heparin drip to bridge to warfarin. Vascular surgery recommends medical management as well. - Follow up repeat INR. LIN -Secondary to above. Fioricet per Neuro. Patient did not tolerate Dilaudid. Zofran prn nausea. - Improved Chest tightness: - Patient denies any history of heart disease. Suspect this is related to anxiety. Doubt this is still side effect from Dilaudid. Will obtain EKG and Troponin. Doubt Cardiac. Anxiety: - Ativan as needed. Hypertension. Blood pressure acceptable. Continue home medications. Continue to monitor. Ulcerative colitis. Chronic. Continue mesalamine. Attention deficit disorder. Recommend staying off Adderall and estrogen due to carotid dissection. Patient reports she was taking this as needed for work. Discharge Planning Stable to transfer to floor. Amanda Hernandez MD February 13, 2018 08:32
--- NOTE | 2018-02-13 08:58 | PD.VS.PN ---
Subjective Subjective/Hospital Course Pt with ? reaction to dilaudid last night but appears fine today persistent dull neck pain, slight improvement notes episodic R hand numbness otherwise ok migraine better Objective Vitals/I&O Date Time Temp Pulse Resp B/P (MAP) Pulse Ox O2 Delivery O2 Flow Rate FiO2 02/13/18 06:00 58 02/13/18 04:00 60 02/13/18 04:00 98.2 58 30 114/69 (84) 95 02/13/18 02:00 54 02/13/18 00:00 97.8 55 10 108/67 (81) 95 02/13/18 00:00 52 02/12/18 22:00 71 02/12/18 20:30 59 02/12/18 20:30 Room Air 02/12/18 20:30 98.5 59 12 166/78 (107) 93 02/12/18 18:50 100 2.00 02/12/18 18:50 100 Nasal Cannula 2.00 02/12/18 16:04 98.0 64 18 142/72 (95) 96 02/12/18 12:04 98.1 62 18 137/70 (92) 96 02/13/18 02/13/18 02/13/18 07:00 15:00 23:00 Intake Total 490 ml Output Total 550 ml Balance -60 ml Physical Exam neuro intact still with LEFT lid droop 5/5 UE strength symmetric Laboratory Laboratory Tests Test 02/12/18 15:45 02/12/18 20:30 02/12/18 22:17 02/13/18 05:18 Activated Partial Thromboplast Time 38.8 39.7 84.4 Nasal Screen MRSA (PCR) MRSA NOT DETECTED Assessment and Plan Assessment: (1) Carotid artery dissection Status: Acute Plan Pt with L ICA dissection without complicating features. Other than neck pain and a migraine (which feels like her usual migraine), she is grossly neuro intact. Does have L<R pupil size. CTA reviewed and note reviewed above. I think ASA (81) and coumadin x 6m is appropriate and agree with neurology. Will f/u in my clinic in 1m with carotid duplex (already scheduled) and then repeat CTA neck in 6m. Ok to normalize activity now (OOB ad coleman, diet, etc) continue neuro checks Jeffry Robison MD FACS [employer] transmission systems operator [facility] - Heart and Vascular Surgery at [facility] [phone] Discharge Planning L carotid dissection, stable neuro 1. anticoagulation x 6m. I am ok with therapeutic lovenox to heparin 2. Goal SBP <140mmHg 3. have arranged f/u in 1m Call with any questions. Jeffry Robison MD February 13, 2018 08:58
[2018-02-13] MEDS: LISINOPRIL 10 MG TAB PO SCH (09:11)
[2018-02-13] MEDS: SODIUM CHLORIDE 0.9% FLUSH 10 ML FLUSH IV FLUSH SCH ×2 (09:12→21:00)
[2018-02-13] MEDS: ASPIRIN 81 MG CHEW TAB PO SCH (09:14)
[2018-02-13] MEDS ORDERED: PILL SPLITTER OTHER PRN (09:15)
[2018-02-13 10:50] LABS: INTERNATIONAL NORMALIZED RATIO 1.1 RATIO; PROTHROMBIN TIME - PATIENT 11.3 SEC (9.8-11.6)
[2018-02-13] MEDS ORDERED: LORazepam 1 MG TAB PO PRN (11:00)
[2018-02-13] MEDS: NITROFURANTOIN MONOHYD MACROCR 100 MG CAP PO SCH ×2 (13:29→20:45)
[2018-02-13] MEDS: WARFARIN SOD 7.5 MG TAB PO SCH (18:48)
--- NOTE | 2018-02-13 19:05 | EKG ---
Date Performed: 02/13/2018 Time Performed: 11:37:31 PTAGE: 57 years EKG: SINUS BRADYCARDIA BORDERLINE ECG NO PREVIOUS TRACING DOCTOR: Nelson Dent Interpretating Date/Time 02/13/2018 19:05:06
--- NOTE | 2018-02-13 20:51 | HHI.PR ---
Review/Management Diagnosis left carotid dissection Neuro exam normal Plan Continue anticoagulation with target INR 2-3, continue low dose asa. Diagnosis/Plan: Subjective Subjective Comments Pt had reaction to dilaudid last PM---possible allergic. Her BP increased and she felt some transient right hand and leg tingling which resolved. BP responded to labetalol and her sx resolved with benadryl and decadron Today feels back to normal with no focal weakness or numbness. neck pain and headache improved today Active Medications Current Medications Medications (Trade) Dose Ordered Sig/Brenda Route Start Time Stop Time Status Last Admin (Heparin Inj) 5,000 units UNSCH PRN IV 02/12/18 00:15 (Heparin Inj) 2,500 units UNSCH PRN IV 02/12/18 00:15 02/13/18 00:05 Heparin Sodium/ Dextrose 250 ml @ 7 mls/hr TITRATE PRN IV 02/11/18 18:30 02/13/18 00:06 (Prinivil) 10 mg DAILY PO 02/12/18 09:00 02/13/18 09:11 (NS Flush) 2 ml UNSCH PRN IV FLUSH 02/11/18 19:15 (NS Flush) 2 ml BID IV FLUSH 02/11/18 21:00 02/13/18 09:12 (Tylenol) 650 mg Q4H PRN PO 02/11/18 19:15 02/12/18 06:41 (Narcan Inj) 0.4 mg UNSCH PRN IV PUSH 02/11/18 19:15 (Milk Of Magnesia Liq) 30 ml Q12H PRN PO 02/11/18 19:15 (Senokot) 17.2 mg Q12H PRN PO 02/11/18 19:15 (Dulcolax Supp) 10 mg DAILY PRN RECTAL 02/11/18 19:15 (Lactulose Liq) 30 ml DAILY PRN PO 02/11/18 19:15 (Macrobid) 100 mg BIDPC PO 02/12/18 09:00 02/13/18 13:29 (Aspirin Chew) 81 mg DAILY PO 02/11/18 21:00 02/13/18 09:14 (Zofran Inj) 4 mg Q6H PRN IV PUSH 02/12/18 09:45 02/12/18 10:22 Patient Own Medication PTOWN: PENTASA (MESALAM... HS PO 02/12/18 21:00 02/12/18 20:48 (Coumadin) 7.5 mg DAILY@16 PO 02/12/18 16:00 02/13/18 18:48 (Fioricet 325-50-40) 1 tab Q8H PRN PO 02/12/18 18:00 02/13/18 09:12 (Trandate Inj) 10 mg Q4H PRN IV PUSH 02/12/18 19:00 02/12/18 19:08 (Lopressor) 12.5 mg Q8HR PO 02/12/18 22:00 02/13/18 09:13 (Pill Splitter) 1 ea UNSCH PRN OTHER 02/13/18 09:15 (Ativan) 1 mg Q8H PRN PO 02/13/18 11:00 Allergies Allergies Coded Allergies codeine (Unverified Allergy, Severe, 02/11/18) hydromorphone (Verified Allergy, Intermediate, Chest Pain, 02/12/18) Latex, Natural Rubber (Verified Allergy, Mild, sensitive, 02/11/18) Sulfa (Sulfonamide Antibiotics) (Verified Adverse Reaction, Mild, sensitive, ) Uncoded Allergies CODEINE-ITCHING ( Allergy, Unknown, 06/15/03) Exam I&O / VS 02/13/18 02/13/18 02/14/18 15:00 23:00 07:00 Intake Total 480 ml Balance 480 ml Intake Oral 480 ml # Voids 2 # Bowel Movements 0 Vital Signs Date Time Temp Pulse Resp B/P (MAP) Pulse Ox O2 Delivery O2 Flow Rate FiO2 02/13/18 16:00 62 02/13/18 16:00 62 16 116/69 (85) 95 02/13/18 12:00 98.5 63 23 132/84 (100) 96 02/13/18 12:00 63 02/13/18 09:00 76 18 113/67 (82) 97 02/13/18 08:00 66 02/13/18 08:00 Room Air 02/13/18 08:00 98.2 66 21 141/82 (101) 97 02/13/18 06:00 58 02/13/18 04:00 60 02/13/18 04:00 98.2 58 30 114/69 (84) 95 02/13/18 02:00 54 02/13/18 00:00 97.8 55 10 108/67 (81) 95 02/13/18 00:00 52 02/12/18 22:00 71 Exam Comments alert, Speech is normal CN normal with left Horners MOTOR 5/5 BUE and BLE, no drift, normal fine motor Objective Micro and Labs Laboratory Tests Test 02/12/18 22:17 02/13/18 05:18 02/13/18 10:04 02/13/18 13:00 Activated Partial Thromboplast Time 39.7 84.4 48.3 46.0 Prothrombin Time 11.3 Prothromb Time International Ratio 1.1 Troponin I LESS THAN 0.02 Mario Alberto Reddy MD PhD February 13, 2018 20:51
[2018-02-13] MEDS: PENTASA 500 MG PO SCH (21:00)
[2018-02-14] VITALS (8 sets, daily range): BP systolic 113–154; BP diastolic 58–87; PULSE 51–71; RESP 20–40; TEMP 97.8–98.5; O2SAT 94–97
[2018-02-14] MEDS: ACETAMINOPHEN 325 MG TAB PO PRN (04:58)
[2018-02-14] MEDS: METOPROLOL TARTRATE 25 MG TAB PO SCH ×3 (04:58→21:53)
[2018-02-14 06:21] LABS: HEMOGLOBIN 11.7 GM/DL (11.6-15.3); MEAN CELL VOLUME 93.9 FL (80.0-100.0); MEAN CORPUSCULAR HEMOGLOBIN 31.4 PG (27.0-34.0); MEAN CORPUSCULAR HGB CONC 33.4 % (32.0-36.0); MEAN PLATELET VOLUME 8.9 FL (7.0-11.0); PLATELET COUNT 258 TH/MM3 (150-450); RED BLOOD COUNT 3.72 MIL/MM3 (4.00-5.30); RED CELL DISTRIBUTION WIDTH 12.6 % (11.6-17.2); WHITE BLOOD COUNT 6.3 TH/MM3 (4.0-11.0)
[2018-02-14 06:45] LABS: INTERNATIONAL NORMALIZED RATIO 1.3 RATIO
[2018-02-14] MEDS: ACETAMIN 325 MG/BUTALBITAL 50 MG/CAFFEINE 40 MG TAB PO PRN ×2 (07:01→20:55)
[2018-02-14] MEDS: LISINOPRIL 10 MG TAB PO SCH (08:50)
[2018-02-14] MEDS: SODIUM CHLORIDE 0.9% FLUSH 10 ML FLUSH IV FLUSH SCH ×2 (08:51→20:54)
[2018-02-14] MEDS: ASPIRIN 81 MG CHEW TAB PO SCH (08:51)
[2018-02-14] MEDS: NITROFURANTOIN MONOHYD MACROCR 100 MG CAP PO SCH ×2 (08:51→17:44)
[2018-02-14] MEDS: HEPARIN-D5W 25,000 U/250 ML 250 ML IV PRN (08:57)
--- NOTE | 2018-02-14 13:30 | HHI.PR ---
Subjective Remarks Patient reports she had a headache this morning but is feeling better after receiving Fioricet. She reports exacerbation of her chronic back pain for which she normally takes Flexeril. INR today is 1.3 Objective Vitals Vital Signs Date Time Temp Pulse Resp B/P (MAP) Pulse Ox O2 Delivery O2 Flow Rate FiO2 02/14/18 04:00 98.4 54 23 148/76 (100) 96 02/14/18 04:00 54 02/14/18 00:00 51 02/14/18 00:00 97.8 51 38 113/58 (76) 94 02/13/18 20:00 99.0 66 18 135/77 (96) 96 02/13/18 20:00 66 02/13/18 19:00 95 Room Air 02/13/18 16:00 62 02/13/18 16:00 62 16 116/69 (85) 95 I/O 02/13/18 02/13/18 02/13/18 02/14/18 02/14/18 02/14/18 07:00 15:00 23:00 07:00 15:00 23:00 Intake Total 490 ml 480 ml 240 ml Output Total 550 ml Balance -60 ml 480 ml 240 ml Intake Oral 240 ml 480 ml 240 ml IV Total 250 ml Output Urine Total 550 ml # Voids 2 2 # Bowel Movements 0 0 0 Result Diagram: 02/14/18 0431 02/12/18 0633 Objective Remarks GENERAL: This is a well-nourished, well-developed patient, in no apparent distress. CARDIOVASCULAR: Regular rate and rhythm without murmurs, gallops, or rubs. RESPIRATORY: Clear to auscultation. Breath sounds equal bilaterally. No wheezes , rales, or rhonchi. GASTROINTESTINAL: Abdomen soft, non-tender, nondistended. Normal active bowel sounds MUSCULOSKELETAL: Extremities without clubbing, cyanosis, or edema. NEURO: Alert & Oriented x4 to person, place, time, situation. Moves all ext x4. Right pupil slightly more dilated compared to left. Unchanged. No change in vision A/P Assessment and Plan 57 Y/O female with: Acute left carotid dissection. Seen on outpatient imaging. Neurology assistance appreciated- recommendation is to continue aspirin and continue on heparin drip to bridge to warfarin. Vascular surgery recommends medical management as well. - Follow up repeat INR tomorrow. LIN -Secondary to above. Fioricet per Neuro. Patient did not tolerate Dilaudid. Zofran prn nausea. -Controlled with Fioricet Chest tightness: -Resolved. Patient reportedly experienced this as a side effect from Dilaudid. EKG and cardiac enzymes were negative. Exacerbation of chronic back pain: - Resume Flexeril which she normally takes at home as needed for back pain. Anxiety: - Ativan as needed. Decreased the dose to 0.5 mg. She reports a 1 mg dose is too strong. Hypertension. Blood pressure acceptable. Continue home medications. Continue to monitor. Ulcerative colitis. Chronic. Continue mesalamine. Attention deficit disorder. Recommend staying off Adderall and estrogen due to carotid dissection. Patient reports she was taking this as needed for work. Discharge Planning Stable to transfer to floor. Amanda Hernandez MD February 14, 2018 13:30
[2018-02-14] MEDS ORDERED: CYCLOBENZAPRINE HCL 10 MG TAB PO PRN (13:45)
[2018-02-14] MEDS: WARFARIN SOD 7.5 MG TAB PO SCH (16:24)
--- NOTE | 2018-02-14 17:22 | HHI.PR ---
Review/Management Diagnosis left carotid dissection Neuro exam normal Plan Continue anticoagulation with target INR 2-3, continue low dose asa. ok fro neuro standpoint to stop heparin and discharge when INR 2-3 start topamax for carotidynia pain. Diagnosis/Plan: Subjective Subjective Comments No acute events reported Has severe intermittent pain left neck with radiation to left zoroastrian/ periorbital area--reduced with fioricet Denies lateralizing neuro sx or speech changes Active Medications Current Medications Medications (Trade) Dose Ordered Sig/Brenda Route Start Time Stop Time Status Last Admin (Heparin Inj) 5,000 units UNSCH PRN IV 02/12/18 00:15 (Heparin Inj) 2,500 units UNSCH PRN IV 02/12/18 00:15 02/13/18 00:05 Heparin Sodium/ Dextrose 250 ml @ 7 mls/hr TITRATE PRN IV 02/11/18 18:30 02/14/18 08:57 (Prinivil) 10 mg DAILY PO 02/12/18 09:00 02/14/18 08:50 (NS Flush) 2 ml UNSCH PRN IV FLUSH 02/11/18 19:15 (NS Flush) 2 ml BID IV FLUSH 02/11/18 21:00 02/13/18 09:12 (Tylenol) 650 mg Q4H PRN PO 02/11/18 19:15 02/14/18 04:58 (Narcan Inj) 0.4 mg UNSCH PRN IV PUSH 02/11/18 19:15 (Milk Of Magnesia Liq) 30 ml Q12H PRN PO 02/11/18 19:15 (Senokot) 17.2 mg Q12H PRN PO 02/11/18 19:15 (Dulcolax Supp) 10 mg DAILY PRN RECTAL 02/11/18 19:15 (Lactulose Liq) 30 ml DAILY PRN PO 02/11/18 19:15 (Macrobid) 100 mg BIDPC PO 02/12/18 09:00 02/14/18 08:51 (Aspirin Chew) 81 mg DAILY PO 02/11/18 21:00 02/14/18 08:51 (Zofran Inj) 4 mg Q6H PRN IV PUSH 02/12/18 09:45 02/12/18 10:22 Patient Own Medication PTOWN: PENTASA (MESALAM... HS PO 02/12/18 21:00 02/13/18 21:00 (Coumadin) 7.5 mg DAILY@16 PO 02/12/18 16:00 02/14/18 16:24 (Fioricet 325-50-40) 1 tab Q8H PRN PO 02/12/18 18:00 02/14/18 07:01 (Trandate Inj) 10 mg Q4H PRN IV PUSH 02/12/18 19:00 02/12/18 19:08 (Lopressor) 12.5 mg Q8HR PO 02/12/18 22:00 02/14/18 14:29 (Pill Splitter) 1 ea UNSCH PRN OTHER 02/13/18 09:15 (Ativan) 0.5 mg Q8H PRN PO 02/14/18 19:00 (Flexeril) 5 mg Q8H PRN PO 02/14/18 13:45 02/14/18 14:29 (Topamax) 25 mg Q12HR PO 02/14/18 21:00 UNV Allergies Allergies Coded Allergies codeine (Unverified Allergy, Severe, 02/11/18) hydromorphone (Verified Allergy, Intermediate, Chest Pain, 02/12/18) Latex, Natural Rubber (Verified Allergy, Mild, sensitive, 02/11/18) Sulfa (Sulfonamide Antibiotics) (Verified Adverse Reaction, Mild, sensitive, ) Uncoded Allergies CODEINE-ITCHING ( Allergy, Unknown, 06/15/03) Exam I&O / VS Vital Signs Date Time Temp Pulse Resp B/P (MAP) Pulse Ox O2 Delivery O2 Flow Rate FiO2 02/14/18 16:00 63 23 123/68 (86) 94 02/14/18 16:00 63 02/14/18 12:00 57 22 129/60 (83) 95 02/14/18 12:00 57 02/14/18 09:00 61 02/14/18 08:00 55 02/14/18 08:00 98.5 55 20 139/73 (95) 95 02/14/18 07:00 67 26 154/87 (109) 97 02/14/18 07:00 67 02/14/18 04:00 98.4 54 23 148/76 (100) 96 02/14/18 04:00 54 02/14/18 00:00 51 02/14/18 00:00 97.8 51 38 113/58 (76) 94 02/13/18 20:00 99.0 66 18 135/77 (96) 96 02/13/18 20:00 66 02/13/18 19:00 95 Room Air Exam Comments alert, Speech is normal CN normal with left Horners MOTOR 5/5 BUE and BLE, no drift, normal fine motor Objective Micro and Labs Laboratory Tests Test 02/13/18 21:33 02/14/18 04:31 Activated Partial Thromboplast Time 39.9 43.6 White Blood Count 6.3 Red Blood Count 3.72 Hemoglobin 11.7 Hematocrit 35.0 Mean Corpuscular Volume 93.9 Mean Corpuscular Hemoglobin 31.4 Mean Corpuscular Hemoglobin Concent 33.4 Red Cell Distribution Width 12.6 Platelet Count 258 Mean Platelet Volume 8.9 Prothrombin Time 13.0 Prothromb Time International Ratio 1.3 Mario Alberto Reddy MD PhD February 14, 2018 17:22
[2018-02-14] MEDS ORDERED: LORazepam 1 MG TAB PO PRN (19:00)
[2018-02-14] MEDS: TOPIRAMATE 25 MG TAB PO SCH (21:53)
[2018-02-14] MEDS: PENTASA 500 MG PO SCH (21:53)
[2018-02-14] MEDS ORDERED: IOHEXOL 350 MG/ML 10 ML VIAL (for RAD DIAG) IVCONTRAST ONE (22:03)
--- NOTE | 2018-02-14 22:16 | RADRPT ---
EXAM DATE/TIME: 02/14/2018 21:27 [place] COMPARISON: No previous studies at [facility] available for comparison. Comparison is made to CTA of the ca rotid arteries from [facility] February 11, 2018 INDICATIONS : Carotid dissection, neck pain IV CONTRAST: 88 cc Omnipaque 350 (iohexol) IV RADIATION DOSE: 10.46 CTDIvol (mGy) MEDICAL HISTORY : Cardiovascular disease. Hypertension. Chrons,basal cell cancer, paresthesia SURGICAL HISTORY : Hysterectomy. ENCOUNTER: Initial ACUITY: 1 day PAIN SCALE: 3/10 LOCATION: Bilateral neck Elevated flow velocities and ICA/CCA ratios have been found to correlate with increased degrees of vessel stenosis, calculated as percentage of diameter relative to a normal segment of distal ICA/CCA. TECHNIQUE: Volumetric scanning was performed using a multirow detector CT scanner. The data was post processed with a variety of visualization algorithms including full-volume maximum intensity projection, multip lanar sliding thin-slab reformation, curved-planar reformation, and surface-rendering techniques. Us ing automated exposure control and adjustment of the mA and/or kV according to patient size, radiatio n dose was kept as low as reasonably achievable to obtain optimal diagnostic quality images. DICOM f ormat image data is available electronically for review and comparison. FINDINGS: AORTIC ARCH: The origin of the arch vessels are totally obscured by beam hardening artifact from contrast within t he brachiocephalic vein. RIGHT CAROTID: The common carotid artery is intact. The carotid bulb has a normal configuration without ulceration o r narrowing. The internal carotid artery lumen is smooth without stenosis. The external carotid jason ry is intact. LEFT CAROTID: Again seen is a dissection involving the left ICA. The ICA shows significant luminal narrowing partic ularly at the level of the skull base. The narrowest point shows a lumen of 1.5 mm which is stable fr om the prior CTA. The more cephalad portion of the ICA remains patent. No hematoma observed. No pseud oaneurysm. The ECA and CCA remain patent. VERTEBRALS: The vertebral arteries have a symmetric diameter. No stenotic lesions are seen. CONCLUSION: 1. Stable appearance to the dissection involving the left ICA with significant luminal narrowing. Thi s is stable in appearance from the 02/11/2018 exam. 2. No hematoma or pseudoaneurysm. Gage Richard Jr., MD on February 14, 2018 at 22:05 Board Certified Radiologist. This report was verified electronically.
[2018-02-15] VITALS (8 sets, daily range): BP systolic 103–140; BP diastolic 57–66; PULSE 59–70; RESP 16–21; TEMP 97.8–98.4; O2SAT 95–99
[2018-02-15 04:56] LABS: INTERNATIONAL NORMALIZED RATIO 1.7 RATIO; PROTHROMBIN TIME - PATIENT 16.7 SEC (9.8-11.6)
[2018-02-15] MEDS: METOPROLOL TARTRATE 25 MG TAB PO SCH (06:00)
[2018-02-15] MEDS: ACETAMIN 325 MG/BUTALBITAL 50 MG/CAFFEINE 40 MG TAB PO PRN ×2 (06:14→13:55)
--- NOTE | 2018-02-15 08:28 | HHI.PR ---
Subjective Remarks Patient reports headache is better since started on Topamax. INR 1.7 today Objective Vitals Vital Signs Date Time Temp Pulse Resp B/P (MAP) Pulse Ox O2 Delivery O2 Flow Rate FiO2 02/15/18 07:40 98.2 59 16 103/63 (76) 95 02/15/18 04:00 59 02/15/18 04:00 98.2 59 16 123/65 (84) 95 02/15/18 00:00 98.0 59 21 127/57 (80) 95 02/15/18 00:00 59 02/14/18 20:00 98.5 71 20 148/75 (99) 95 02/14/18 20:00 71 02/14/18 16:00 63 23 123/68 (86) 94 02/14/18 16:00 63 02/14/18 12:00 57 22 129/60 (83) 95 02/14/18 12:00 57 02/14/18 09:00 61 I/O 02/14/18 02/14/18 02/14/18 02/15/18 02/15/18 02/15/18 07:00 15:00 23:00 07:00 15:00 23:00 Intake Total 240 ml 480 ml 320 ml Balance 240 ml 480 ml 320 ml Intake Oral 240 ml 480 ml 320 ml # Voids 2 2 2 # Bowel Movements 0 0 0 Result Diagram: 02/14/18 0431 02/12/18 0633 Objective Remarks GENERAL: This is a well-nourished, well-developed patient, in no apparent distress. CARDIOVASCULAR: Regular rate and rhythm without murmurs, gallops, or rubs. RESPIRATORY: Clear to auscultation. Breath sounds equal bilaterally. No wheezes , rales, or rhonchi. GASTROINTESTINAL: Abdomen soft, non-tender, nondistended. Normal active bowel sounds MUSCULOSKELETAL: Extremities without clubbing, cyanosis, or edema. NEURO: Alert & Oriented x4 to person, place, time, situation. Moves all ext x4. Right pupil slightly more dilated compared to left. Unchanged. No change in vision A/P Assessment and Plan 57 Y/O female with: Acute left carotid dissection. Seen on outpatient imaging. Neurology assistance appreciated- recommendation is to continue aspirin and continue on heparin drip to bridge to warfarin. Vascular surgery recommends medical management as well. -Continue heparin and Coumadin. Discontinue heparin when INR above 2. LIN -Secondary to above. Fioricet and Topamax per Neuro. Patient did not tolerate Dilaudid. Zofran prn nausea. -Better controlled with Topamax and Fioricet. One episode of chest tightness: -Resolved. Patient reportedly experienced this as a side effect from Dilaudid. EKG and cardiac enzymes were negative. Exacerbation of chronic back pain: - Resume Flexeril which she normally takes at home as needed for back pain. Anxiety: - Ativan as needed. Decreased the dose to 0.5 mg. She reports a 1 mg dose is too strong. Hypertension. Blood pressure acceptable. Continue home medications. Continue to monitor. Ulcerative colitis. Chronic. Continue mesalamine. Attention deficit disorder. Recommend staying off Adderall and estrogen due to carotid dissection. Patient reports she was taking this as needed for work. Discharge Planning Stable to transfer to floor. Plan to discharge home once INR is above 2 Amanda Hernandez MD February 15, 2018 08:28
[2018-02-15] MEDS: LISINOPRIL 10 MG TAB PO SCH (08:40)
[2018-02-15] MEDS: ASPIRIN 81 MG CHEW TAB PO SCH (08:40)
[2018-02-15] MEDS: SODIUM CHLORIDE 0.9% FLUSH 10 ML FLUSH IV FLUSH SCH ×2 (08:40→21:47)
[2018-02-15] MEDS: TOPIRAMATE 25 MG TAB PO SCH ×2 (08:40→21:44)
[2018-02-15] MEDS: NITROFURANTOIN MONOHYD MACROCR 100 MG CAP PO SCH ×2 (08:40→18:00)
--- NOTE | 2018-02-15 10:14 | HHI.PR ---
Subjective Remarks light sensitive left eye s/p f/u cta ca yest-stable disection reported. still off and on wolf tpx helps. Objective Vital Signs Date Time Temp Pulse Resp B/P (MAP) Pulse Ox O2 Delivery O2 Flow Rate FiO2 02/15/18 08:00 98.2 59 16 103/63 (76) 95 02/15/18 08:00 59 02/15/18 07:40 98.2 59 16 103/63 (76) 95 02/15/18 04:00 59 02/15/18 04:00 98.2 59 16 123/65 (84) 95 02/15/18 00:00 98.0 59 21 127/57 (80) 95 02/15/18 00:00 59 02/14/18 20:00 98.5 71 20 148/75 (99) 95 02/14/18 20:00 71 02/14/18 16:00 63 23 123/68 (86) 94 02/14/18 16:00 63 02/14/18 12:00 57 22 129/60 (83) 95 02/14/18 12:00 57 I/O 02/14/18 02/14/18 02/14/18 02/15/18 02/15/18 02/15/18 07:00 15:00 23:00 07:00 15:00 23:00 Intake Total 240 ml 480 ml 320 ml Balance 240 ml 480 ml 320 ml Intake Oral 240 ml 480 ml 320 ml # Voids 2 2 2 # Bowel Movements 0 0 0 Result Diagram: 02/14/18 0431 02/12/18 0633 Other Results inr 1.7 today Objective Remarks awake alert fluent perrla motor intact Assessment and Plan Assessment and Plan left carotid diseection h/a carotidynia -increase tpx 50 mg bd -fioricet prn -stop heparin once inr in 2.-cont warfarin. Irina Agrawal MD February 15, 2018 10:14
[2018-02-15] MEDS: HEPARIN-D5W 25,000 U/250 ML 250 ML IV PRN (10:27)
[2018-02-15] MEDS: WARFARIN SOD 7.5 MG TAB PO SCH (16:46)
[2018-02-15] MEDS: PENTASA 500 MG PO SCH (21:45)
[2018-02-16] VITALS (10 sets, daily range): BP systolic 114–129; BP diastolic 55–69; PULSE 59–78; RESP 14–18; TEMP 97.3–98.4; O2SAT 95–98
[2018-02-16] MEDS: ACETAMIN 325 MG/BUTALBITAL 50 MG/CAFFEINE 40 MG TAB PO PRN ×3 (05:39→22:44)
[2018-02-16 06:23] LABS: INTERNATIONAL NORMALIZED RATIO 1.7 RATIO; PROTHROMBIN TIME - PATIENT 16.8 SEC (9.8-11.6)
[2018-02-16] MEDS: NITROFURANTOIN MONOHYD MACROCR 100 MG CAP PO SCH ×2 (08:52→16:24)
[2018-02-16] MEDS: ASPIRIN 81 MG CHEW TAB PO SCH (08:52)
[2018-02-16] MEDS: TOPIRAMATE 25 MG TAB PO SCH ×2 (08:52→20:14)
[2018-02-16] MEDS: LISINOPRIL 10 MG TAB PO SCH (08:53)
[2018-02-16] MEDS: SODIUM CHLORIDE 0.9% FLUSH 10 ML FLUSH IV FLUSH SCH ×2 (08:53→20:16)
[2018-02-16] MEDS: HEPARIN-D5W 25,000 U/250 ML 250 ML IV PRN (11:29)
--- NOTE | 2018-02-16 14:54 | HHI.PR ---
Subjective Remarks Patient reports that she experienced a headache again this morning but is better now after taking Fioricet. Objective Vitals Vital Signs Date Time Temp Pulse Resp B/P (MAP) Pulse Ox O2 Delivery O2 Flow Rate FiO2 02/16/18 12:00 97.3 71 18 124/68 (86) 97 02/16/18 12:00 78 02/16/18 08:00 97.9 69 18 128/69 (88) 98 02/16/18 08:00 Room Air 02/16/18 08:00 75 02/16/18 04:18 61 02/16/18 04:00 98.4 63 16 123/68 (86) 95 02/16/18 00:02 59 02/16/18 00:00 98.1 59 16 125/64 (84) 96 02/15/18 20:45 Room Air 02/15/18 20:14 70 02/15/18 20:00 98.0 64 18 117/57 (77) 97 02/15/18 16:00 97.8 67 20 139/60 (86) 97 I/O 02/15/18 02/15/18 02/15/18 02/16/18 02/16/18 02/16/18 07:00 15:00 23:00 07:00 15:00 23:00 Intake Total 320 ml 240 ml 240 ml Balance 320 ml 240 ml 240 ml Intake Oral 320 ml 240 ml 240 ml # Voids 2 3 3 # Bowel Movements 0 1 Result Diagram: 02/14/18 0431 02/12/18 0633 Objective Remarks GENERAL: This is a well-nourished, well-developed patient, in no apparent distress. CARDIOVASCULAR: Regular rate and rhythm without murmurs, gallops, or rubs. RESPIRATORY: Clear to auscultation. Breath sounds equal bilaterally. No wheezes , rales, or rhonchi. GASTROINTESTINAL: Abdomen soft, non-tender, nondistended. Normal active bowel sounds MUSCULOSKELETAL: Extremities without clubbing, cyanosis, or edema. NEURO: Alert & Oriented x4 to person, place, time, situation. Moves all ext x4. Right pupil slightly more dilated compared to left. Unchanged. No change in vision A/P Assessment and Plan 57 Y/O female with: Acute left carotid dissection. Seen on outpatient imaging. Neurology assistance appreciated- recommendation is to continue aspirin and continue on heparin drip to bridge to warfarin. Vascular surgery recommends medical management as well. -Continue heparin and Coumadin. Discontinue heparin when INR above 2. INR plateaued at 1.7. She has been on the same dose for the past 4 days. Increase Coumadin to 8.5 mg daily. LIN -Secondary to above. Fioricet and Topamax per Neuro. Patient did not tolerate Dilaudid. Zofran prn nausea. -Better controlled with Topamax and Fioricet. One episode of chest tightness: -Resolved. Patient reportedly experienced this as a side effect from Dilaudid. EKG and cardiac enzymes were negative. I suspect this is more related to anxiety. Exacerbation of chronic back pain: - Resume Flexeril which she normally takes at home as needed for back pain. Anxiety: - Ativan as needed. Decreased the dose to 0.5 mg. She reports a 1 mg dose is too strong. Hypertension. Blood pressure acceptable. Continue home medications. Continue to monitor. Ulcerative colitis. Chronic. Continue mesalamine. Attention deficit disorder. Recommend staying off Adderall and estrogen due to carotid dissection. Patient reports she was taking this as needed for work. Discharge Planning Plan to discharge home once INR is above 2 Amanda Hernandez MD February 16, 2018 14:54
[2018-02-16] MEDS ORDERED: WARFARIN SOD 2.5 MG TAB PO SCH (16:00)
[2018-02-16] MEDS ORDERED: WARFARIN SOD 6 MG TAB PO SCH (16:00)
[2018-02-16] MEDS: ONDANSETRON HCL 4 MG/2 ML VIAL IV PUSH PRN (16:24)
[2018-02-16] MEDS: PENTASA 500 MG PO SCH (20:15)
[2018-02-17] VITALS: PULSE 63
[2018-02-17 04:00] VITALS: PULSE 58
[2018-02-17 04:53] VITALS: BP 123/68; PULSE 62; RESP 14; TEMP 98.6; O2SAT 97
[2018-02-17] MEDS: ACETAMIN 325 MG/BUTALBITAL 50 MG/CAFFEINE 40 MG TAB PO PRN (06:37)
[2018-02-17 07:03] LABS: HEMATOCRIT 37.7 % (35.0-46.0); HEMOGLOBIN 12.8 GM/DL (11.6-15.3); MEAN CELL VOLUME 93.2 FL (80.0-100.0); MEAN CORPUSCULAR HEMOGLOBIN 31.6 PG (27.0-34.0); MEAN CORPUSCULAR HGB CONC 33.9 % (32.0-36.0); MEAN PLATELET VOLUME 8.1 FL (7.0-11.0); PLATELET COUNT 270 TH/MM3 (150-450); RED BLOOD COUNT 4.05 MIL/MM3 (4.00-5.30); RED CELL DISTRIBUTION WIDTH 12.3 % (11.6-17.2); WHITE BLOOD COUNT 5.7 TH/MM3 (4.0-11.0)
[2018-02-17 08:00] VITALS: BP 111/66; PULSE 63; PULSE 72; RESP 20; TEMP 98.2; O2SAT 97
[2018-02-17] MEDS: SODIUM CHLORIDE 0.9% FLUSH 10 ML FLUSH IV FLUSH SCH (09:00)
[2018-02-17] MEDS: TOPIRAMATE 25 MG TAB PO SCH (09:14)
[2018-02-17] MEDS: ASPIRIN 81 MG CHEW TAB PO SCH (09:14)
[2018-02-17] MEDS: LISINOPRIL 10 MG TAB PO SCH (09:15)
[2018-02-17] MEDS: NITROFURANTOIN MONOHYD MACROCR 100 MG CAP PO SCH (09:15)
[2018-02-17 12:17] VITALS: BP 119/59; PULSE 68; RESP 18; TEMP 97.9; O2SAT 100
[2018-02-17 12:46] LABS: INTERNATIONAL NORMALIZED RATIO 2.2 RATIO; PROTHROMBIN TIME - PATIENT 21.8 SEC (9.8-11.6)
[2018-02-17] MEDS ORDERED: TOPI50TA7 PO (13:12)
[2018-02-17] MEDS ORDERED: Acet-Butal-Caff 325-50-40 Mg PO (13:12)
[2018-02-17] MEDS ORDERED: WARF-60 PO (13:16)
[2018-02-17] MEDS ORDERED: WARF-18 PO (13:16)
--- NOTE | 2018-02-17 13:16 | HHI.DS ---
Discharge Summary Admission Date February 11, 2018 at 18:38 Discharge Date: February 17, 2018 Admitting Diagnosis Carotid dissection (1) Headache ICD Code: R51 - Headache (2) HTN (hypertension) ICD Code: I10 - Essential (primary) hypertension (3) Carotid artery dissection ICD Code: I77.71 - Dissection of carotid artery (4) Anxiety ICD Code: F41.9 - Anxiety disorder, unspecified Procedures None Brief History - From Admission HPI from the admitting physician 57-year-old female with past medical history of hypertension, ulcerative colitis , attention deficit on dextroamphetamine who presents with a one-week history of dull left neck pain radiating to left face, with several day history of left face numbness. She went to urgent care this morning with MRA showing left carotid dissection. She reports continued left-sided face numbness which is slightly improved. She denies any visual changes. She reports some nausea yesterday without vomiting which has resolved. She reports some subjective night sweats last night, however denies any fevers. Other than left facial numbness, patient denies any focal neurologic signs or symptoms. Incidentally, patient also reports some hematuria beginning about a week ago, for which a urinalysis was done 5 days ago and patient was started on Macrobid for treatment of UTI. She reports that symptoms have resolved but she is to continue treatment. CBC/BMP: 02/17/18 0636 Significant Findings Laboratory Tests Test 02/15/18 04:01 02/16/18 05:30 02/17/18 06:36 02/17/18 12:24 Prothrombin Time 16.7 SEC (9.8-11.6) 16.8 SEC (9.8-11.6) 21.8 SEC (9.8-11.6) Activated Partial Thromboplast Time 51.4 SEC (24.3-30.1) 50.6 SEC (24.3-30.1) 53.2 SEC (24.3-30.1) 49.2 SEC (24.3-30.1) Imaging Last Impressions Neck CTA 02/14/18 0000 Signed Impressions: Service Date/Time: Wednesday, February 14, 2018 21:27 - CONCLUSION: 1. Stable appearance to the dissection involving the left ICA with significant luminal narrowing. This is stable in appearance from the 02/11/2018 exam. 2. No hematoma or pseudoaneurysm. Gage Richard Jr., MD Head CT 02/11/18 0000 Signed Impressions: Service Date/Time: Sunday, February 11, 2018 17:37 - CONCLUSION: Normal examination. Bobby Thomas MD PE at Discharge GENERAL: This is a well-nourished, well-developed patient, in no apparent distress. CARDIOVASCULAR: Regular rate and rhythm without murmurs, gallops, or rubs. RESPIRATORY: Clear to auscultation. Breath sounds equal bilaterally. No wheezes , rales, or rhonchi. GASTROINTESTINAL: Abdomen soft, non-tender, nondistended. Normal active bowel sounds MUSCULOSKELETAL: Extremities without clubbing, cyanosis, or edema. NEURO: Alert & Oriented x4 to person, place, time, situation. Moves all ext x4. Right pupil slightly more dilated compared to left. Unchanged. No change in vision Pt update on day of discharge Patient reports she is feeling better. Anxious to go home. Headache is controlled with Fioricet. Discussed discharge planning at length and the need to follow-up. Hospital Course 57 Y/O female admitted and treated for the following: Acute left carotid dissection. Seen on outpatient imaging. Patient followed by neurology recommendation is to continue aspirin and continue on heparin drip to bridge to warfarin. Vascular surgery consulted on the patient and recommended medical management as well. Patient was continued on a heparin drip and Coumadin. INR slowly trended to therapeutic level. The patient was discharged home on Coumadin 8.5 mg daily. She is to follow-up outpatient with her primary care physician for regular INR check and titration of Coumadin as needed. Patient advised to follow-up with neurology and vascular surgery. LIN -Secondary to above. Fioricet and Topamax per Neuro. -Better controlled with Topamax and Fioricet. One episode of chest tightness: -Resolved. Patient reportedly experienced this as a side effect from Dilaudid. EKG and cardiac enzymes were negative. I suspect this is more related to anxiety. Symptoms resolved with Ativan. Exacerbation of chronic back pain: - Resume Flexeril which she normally takes at home as needed for back pain. Anxiety: - Ativan as needed. Decreased the dose to 0.5 mg. She reports a 1 mg dose is too strong. Hypertension. Blood pressure acceptable. Continue home medications. Ulcerative colitis. Chronic. Continue mesalamine. Attention deficit disorder. Recommend staying off Adderall and estrogen due to carotid dissection. Patient reports she was taking this as needed for work. Pt Condition on Discharge: Good Discharge Disposition: Discharge Home Discharge Time: > 30 minutes Discharge Instructions DIET: Follow Instructions for: Coumadin (Warfarin) Diet Activities you can perform: Regular-No Restrictions Follow up Referrals: Neurology - 3-5 Days PCP Follow-up - 1 Week Vascular Surgery - 1 Month @ Vascular Surgery with Jeffry Robison MD Your F/ U appointment is on 03/14/18 at 9:15 Your surveillance Carotid Duplex is scheduled on 03/10/18 at 10:00 New Orders: PT/INR - 3-5 Days New Medications: Warfarin (Warfarin) 2.5 Mg Tab 2.5 MG PO DAILY for Blood Clot Prevention, #30 TAB 0 Refills Take 1 daily in addition to 6 mg tablet for total of 8.5 mg daily Warfarin (Warfarin) 6 Mg Tab 6 MG PO DAILY for Blood Clot Prevention, #30 TAB 0 Refills Take 1 tablet daily in addition to the 2.5 mg tablet for a total of 8.5 mg daily Lorazepam (Ativan) 1 Mg Tab 0.5 MG PO Q8H PRN for ANXIETY, #10 TAB Topiramate (Topiramate) 50 Mg Tab 50 MG PO BID for Control Seizures, #60 TAB 0 Refills [Ynkm-Ftypx-Zxsx 325-50-40 Mg] () 1 TAB TAB 1 TAB PO Q8H PRN for HEADACHE, #20 TAB Continued Medications: Ginkgo Biloba (Ginkgo Biloba) 120 Mg Tablet 120 MG PO DAILY Lisinopril (Lisinopril) 10 Mg Tab 10 MG PO DAILY, #30 TAB 0 Refills Mesalamine ER (Pentasa) 500 Mg Caper 1000 MG PO HS for Ulcerative Colitis, CAP 0 Refills Multiple Vitamin (One Daily) 1 Tab 1 TAB PO DAILY for Nutritional Supplement, TAB 0 Refills Vitamin E (E1000) 1,000 Unit Cap 1000 UNIT PO DAILY for Nutritional Supplement Discontinued Medications: Amphetamine-Dextroamphetamine (Adderall) 30 Mg Tab 1 TAB PO DAILY Aspirin/Acetaminophen/Caffeine (Excedrin Migraine Caplet) 250 Mg-250 Mg-65 Mg Tablet 1-2 TAB PO DAILY PRN for HEADACHE Estradiol (Estradiol) 2 Mg Tab 2 MG PO DAILY for Estrogen Supplements, #30 TAB 0 Refills Nitrofurantoin Monohydrate Macrocrystals (Macrobid) 100 Mg Cap 100 MG PO BID for Infection, CAP 0 Refills Nitrofurantoin Monohydrate Macrocrystals (Nitrofurantoin Monohydrate Macrocrystals) 100 Mg Cap 1 TAB PO BID for 10 Days, #20 Amanda Hernandez MD February 17, 2018 13:16
[2018-02-17] MEDS ORDERED: LORA-474 PO (13:59)
== END 2018-02-17 14:19 | disposition home or self-care (01) | DRG 300 ==
LOC: NEPD 16:18 → NEDA 18:38 → N04A 21:38 → N04B 21:38 → HIMW 02-12 20:30 → N04B 02-15 11:00
PROVIDERS: ADMIT Family Medicine; ATTEND Family Medicine
DX: I77.71 Dissection of carotid artery (principal); K51.90 Ulcerative colitis, unspecified, without complications; I10 Essential (primary) hypertension; M54.9 Dorsalgia, unspecified; F98.8 Other specified behavioral and emotional disorders with onset usually occurring in childhood and adolescence; F41.9 Anxiety disorder, unspecified; G89.29 Other chronic pain; G43.909 Migraine, unspecified, not intractable, without status migrainosus; Z79.2 Long term (current) use of antibiotics; Z79.899 Other long term (current) drug therapy; Z88.5 Allergy status to narcotic agent; Z88.2 Allergy status to sulfonamides; Z91.040 Latex allergy status
CPT/HCPCS: 70450; 70498; 80048; 80053; 84484; 85025; 85027; 85610; 85730; 87641; 93005; J1170; J1200; J1644; J2405; Q9967